=== PATIENT | female | born 1995 | race Two or more races ===

== ENCOUNTER 2025-10-08 10:28 | Emergency (ER) | payer BC ==
[~2025-10-08] VITALS: Ht 165.1 cm; Wt 61.2 kg
[2025-10-08] MEDS ORDERED: ZYRTEC10 M3 (12:16)
[2025-10-08] MEDS ORDERED: WELLBUTRIN SR150 MG (12:16)
[2025-10-08] MEDS ORDERED: SINGULAIR10 MG (12:16)
[2025-10-08] MEDS ORDERED: LEXAPRO20 MG (12:16)
[2025-10-08] MEDS ORDERED: 0.9 % SODIUM CHLORIDE 1,000 ML IV STA (13:49)
[2025-10-08] MEDS ORDERED: FAMOTIDINE/PF 20 MG/2 ML VIAL IV PUSH STA (13:49)
[2025-10-08 14:24] LABS: BASO % 0.0 % (0.1-1.2); EOS # 0.01 (0.04-0.54); EOS % 0.3 % (0.7-7.0); LYMPH # 0.53 (1.18-3.74); LYMPH % 13.7 % (19.3-53.1); MEAN PLATELET VOLUME 10.20 fl (9.4-12.4); MONO # 0.33 (0.24-0.82); MONO % 8.5 % (4.7-12.5); NEUT # 2.98 (1.56-6.13); NEUT % 77.2 % (34.0-71.1); RED CELL DISTRIBUTION WIDTH 13.2 % (11.6-14.4)
[2025-10-08 15:00] LABS: ALT/SGPT 31.0 U/L (12-78); AST/SGOT 23.0 U/L (15-37); BILIRUBIN TOTAL 0.19 mg/dL (0.3-1.2); BUN CREA RATIO 10.0 (7.0-25.0); CREATININE SERUM 0.78 mg/dL (0.55-1.02); GFR 87.94; GLOBULINA 3.8 G/DL (2.4-3.5); GLUCOSE FASTING 102.0 mg/dL (65-100); OSMOLALITY SERUM 276.0 MOSM/KG (275-295)
== END 2025-10-08 16:05 | disposition home or self-care (01) ==
LOC: ER 10:28
PROVIDERS: General Practice
DX: B34.9 Viral infection, unspecified (principal); R11.10 Vomiting, unspecified; R55 Syncope and collapse; Z91.018 Allergy to other foods